=== PATIENT | female | born 1970 | race Caucasian/White ===

== ENCOUNTER 2018-08-23 04:12 | Emergency (ER) | payer BC ==
[~2018-08-23] VITALS: Ht 162.6 cm; Wt 80.0 kg
[~2018-08-23 04:12] MED LIST: CELEXA
[2018-08-23 04:14] VITALS: Ht 162.6 cm; Wt 80.0 kg
[2018-08-23] MEDS ORDERED: ONDANSETRON 4 MG INJ IV STA (06:36)
[2018-08-23] MEDS ORDERED: SOD CHLORIDE 0.9% 500 ML IV STA (06:36)
[2018-08-23] MEDS ORDERED: LIDOCAINE/MYLANTA 40 ML BTL PO STA (06:36)
[2018-08-23] MEDS ORDERED: FAMOTIDINE 20 MG INJ IV STA (06:36)
[2018-08-23] MEDS ORDERED: BELLADONNA/PHENOBARBITAL TAB PO STA (06:36)
[2018-08-23] MEDS ORDERED: DICYCLOMINE 20 MG INJ IM ONE (07:30)
--- NOTE | 2018-08-23 07:48 | ERD ---
ER Documentation Chief Complaint Chief Complaint epigastric pain since 1999. HPI This is a 47-year-old female with a past medical history of gastric ulcers and 2 previous C-sections who is presenting with exacerbated epigastric pain. The patient has had issues with ulcers and epigastric pain since 1999, but it has waxed and waned over time. The patient's symptoms have seemed to be under control mostly over the last few years, but has been getting worse over the last several days. The patient reports going out for a meal recently and she thought that the chicken was raw. The patient developed nausea with several episodes of nonbilious nonbloody vomiting and diarrhea the day after. The patient is felt bloated and crampy since then. She is tried a few [id number] and homeopathic medications at home without any significant relief. Yesterday, the patient reports having had a decreased appetite, but she did eat fried chicken and vegetables last night after which her symptoms were exacerbated. The patient endorses moderate cramping gnawing burning epigastric pain radiating into her throat, waxing and waning in nature. She believes that it is her stomach ulcer. She did have an endoscopy several years ago, but she does not know what the results are from it. She is not on any medications for her stomach. She denies any changes to bowel movements at this time. The diarrhea resolved after 1 day. She does not endorse constipation. She had a normal formed brown bowel movement yesterday. She denies dysuria or hematuria or urgency or frequency. She denies any vaginal bleeding or discharge or burning or pain. The patient denies feeling sick recently. The patient denies fever or chills. The patient has had no headache or vision changes. The patient does not endorse neck or back pain. The patient denies lightheadedness or dizziness. The patient has had no chest pain or trouble breathing. The patient has had no focal deficits. The patient has had no weakness or numbness or tingling to the face or extremities. ROS All systems reviewed and are negative except as per history of present illness. Medications Home Meds Active Scripts Ondansetron Hcl* (Zofran*) 8 Mg Tablet, 8 MG PO Q6H PRN for NAUSEA AND OR VOMITING, #20 TAB Prov:SALOME CHAKRABORTY MD 08/23/18 Omeprazole* (Omeprazole*) 40 Mg Capsule.dr, 40 MG PO DAILY, #15 CAP Prov:SALOME CHAKRABORTY MD 08/23/18 Famotidine* (Pepcid*) 20 Mg Tablet, 20 MG PO BID for 14 Days, TAB Prov:SALOME CHAKRABORTY MD 08/23/18 Reported Medications Celexa 10/31/09 Allergies Allergies: Coded Allergies: No Known Drug Allergies (Verified Allergy, Mild, 10/31/09) PMhx/Soc History of Surgery: Yes (CSECTIONS) Anesthesia Reaction: No Hx Neurological Disorder: No Hx Respiratory Disorders: No Hx Cardiac Disorders: No Hx Psychiatric Problems: No Hx Miscellaneous Medical Probl: Yes (GASTRIC ULCER) Hx Alcohol Use: Yes (OCASSIONALLY) Hx Substance Use: No Hx Tobacco Use: Yes Smoking Status: Current some day smoker FmHx Family History: No diabetes Physical Exam Vitals Vital Signs Date Temp Pulse Resp B/P (MAP) Pulse Ox O2 O2 Flow FiO2 Time Delivery Rate 08/23/18 98.3 60 18 108/65 97 Room Air 09:40 (79) 08/23/18 98.2 63 18 115/69 98 Room Air 08:00 (84) 08/23/18 60 14 111/81 98 Room Air 05:33 (91) 08/23/18 98.0 75 18 115/76 98 04:14 (89) Physical Exam Const: No acute distress Head: Atraumatic Eyes: Normal Conjunctiva ENT: Normal External Ears, Nose and Mouth. Neck: Full range of motion. No meningismus. Resp: Clear to auscultation bilaterally Cardio: Regular rate and rhythm, no murmurs Abd: Soft, non distended. Mild epigastric tenderness. No guarding or rebound. Normal bowel sounds Skin: No petechiae or rashes Back: No midline or flank tenderness Ext: No cyanosis, or edema Neur: Awake and alert Psych: Normal Mood and Affect Result Diagram: 08/23/1848 08/23/1848 Results 24 hrs Laboratory Tests Test 08/23/18 05:32 08/23/18 05:37 08/23/18 05:48 Urine Color YELLOW Urine Clarity CLEAR Urine pH 6.0 Urine Specific [place] 1.020 Urine Ketones NEGATIVE mg/dL Urine Nitrite NEGATIVE mg/dL Urine Bilirubin NEGATIVE mg/dL Urine Urobilinogen NEGATIVE mg/dL Urine Leukocyte Esterase NEGATIVE Kam/ul Urine Microscopic RBC 5 /HPF Urine Microscopic WBC 1 /HPF Urine Bacteria FEW /HPF Urine Mucus FEW /HPF Urine Hemoglobin 1+ mg/dL Urine Glucose NEGATIVE mg/dL Urine Total Protein NEGATIVE mg/dl Urine Test NEGATIVE Troponin I < 0.012 ng/ml White Blood Count 7.7 10^3/ul Red Blood Count 4.70 10^6/ul Hemoglobin 13.6 g/dl Hematocrit 42.4 % Mean Corpuscular Volume 90.2 fl Mean Corpuscular Hemoglobin 28.9 pg Mean Corpuscular 32.1 g/dl Hemoglobin Concent Red Cell Distribution Width 13.5 % Platelet Count 271 10^3/UL Mean Platelet Volume 9.1 fl Immature Granulocytes % 0.400 % Neutrophils % 66.5 % Lymphocytes % 24.1 % Monocytes % 5.1 % Eosinophils % 3.4 % Basophils % 0.5 % Nucleated Red Blood Cells % 0.0 /100WBC Immature Granulocytes # 0.030 10^3/ul Neutrophils # 5.1 10^3/ul Lymphocytes # 1.9 10^3/ul Monocytes # 0.4 10^3/ul Eosinophils # 0.3 10^3/ul Basophils # 0.0 10^3/ul Nucleated Red Blood Cells # 0.0 10^3/ul Sodium Level 144 mmol/L Potassium Level 4.6 mmol/L Chloride Level 102 mmol/L Carbon Dioxide Level 35 mmol/L Anion Gap 7 Blood Urea Nitrogen 19 mg/dl Creatinine 0.74 mg/dl Est Glomerular Filtrat > 60 mL/min Rate mL/min Glucose Level 136 mg/dl Calcium Level 10.3 mg/dl Total Bilirubin 0.4 mg/dl Direct Bilirubin 0.00 mg/dl Indirect Bilirubin 0.4 mg/dl Aspartate Amino 25 IU/L Transf (AST/SGOT) Alanine 63 IU/L Aminotransferase (ALT/SGPT) Alkaline Phosphatase 63 IU/L Total Protein 8.1 g/dl Albumin 4.5 g/dl Globulin 3.60 g/dl Albumin/Globulin Ratio 1.25 Lipase 106 U/L Current Medications Medications Dose Sig/Tad Start Time Status Last (Trade) Ordered Route PRN Stop Time Admin Dose Reason Admin Sodium 500 ml @ Q1H STAT 08/23/18 DC 08/23/18 Chloride 500 mls/hr IV 06:36 06:51 08/23/18 07:35 Ondansetron 4 mg ONCE STAT 08/23/18 DC 08/23/18 HCl (Zofran IV 06:36 06:51 Inj) 08/23/18 06:38 Famotidine 20 mg ONCE STAT 08/23/18 DC 08/23/18 (Pepcid Iv) IV 06:36 06:51 08/23/18 06:38 40 ml ONCE STAT 08/23/18 DC 08/23/18 Miscellaneous PO 06:36 06:51 Medication 08/23/18 06:38 (Gi Cocktail (2)) Belladonna/ 2 tab ONCE STAT 08/23/18 DC 08/23/18 Phenobarbital PO 06:36 06:51 () 08/23/18 06:38 Dicyclomine 10 mg ONCE ONCE 08/23/18 DC 08/23/18 HCl IM 07:30 07:35 (Bentyl) 08/23/18 07:31 Procedures/MDM MDM The patient's presentation warrants further investigation. Previous medical rach rds, if available, were reviewed. LABS The patient's laboratory testing was obtained and reviewed. No emergent treatment was required unless described below. CBC: No E/o systemic infection or severe anemia or thrombocytopenia Chemistry: No E/o severe acidosis or alkalosis or renal failure or liver disease or diabetic ketoacidosis Lipase: No E/o pancreatitis Troponin: Negative Urine: No E/o acute infection or hematuria EKG EKG read by me: Rate/Rhythm: Sinus bradycardia at 52 bpm Intervals: Normal Beeler: Normal Impression: No evidence of acute ischemia. Sinus bradycardia. IMAGING Imaging and Radiology interpretation reviewed. CXR 1V Interpreted by me Soft Tissue: No acute abnormalities Bones: No acute abnormalities Mediastinum/Cardiac Silhouette: Unremarkable. No widened mediastinum. Lungs: No acute abnormalities. Normal pulmonary vasculature. No pneumothorax. No pulmonary edema. Clear costal diaphragmatic angles. No pleural effusions. No opacity or consolidations concerning for pneumonia. Other: No pneumoperitoneum Ultrasound right upper quadrant FINDINGS: The liver demonstrates normal echogenicity. The liver is normal in size and no focal solid lesions are seen. The liver measures 13.8 cm in length. The portal vein is patent with normal direction of flow. No intrahepatic biliary dilatation is seen. No gallstones are identified within the gallbladder. There is no pericholecystic fluid or gallbladder wall thickening. The common bile duct measures 6 mm in maximal dimension. The visualized portions of the pancreas are unremarkable. The tail of the pancreas is not seen. No free fluid is identified. The right kidney is normal in size, and demonstrate normal echogenicity and cortical thickness. The right kidney measures 10.4 cm in long dimension. There is no evidence of hydronephrosis. There are no kidney stones. IMPRESSION: Unremarkable right upper quadrant abdominal ultrasound. Electronically viewed and signed by Kong Tesfaye MD on 08/23/2018 08:31 TREATMENT/DISPOSITION The patient presents with epigastric abdominal pain. I do suspect gastritis versus PUD versus GERD as the etiology of her symptoms. She has a known diagnosis of ulcers, which could have been exacerbated. The patient also has symptoms that are potentially concerning for gastroenteritis. Both of these can be treated symptomatically. There is no evidence of pneumoperitoneum. I do not suspect viscus perforation. The patient does not have any evidence of p eritonitis. The patient does not have clinical symptoms concerning for mesenteric ischemia or ischemic colitis. Given the location of the patient's pain, I did opt to perform an ultrasound of the gallbladder, which was unremarkable. The patient does not have right upper quadrant tenderness, and I have low suspicion for gallstones, cholecystitis or biliary colic. The patient does not have left upper quadrant tenderness. I have low suspicion for pancreatitis. The patient does not have any right lower quadrant tenderness, or periumbilical tenderness. I have low suspicion for appendicitis. The patient does not have suprapubic tenderness. I have decreased suspicion for cystitis. The patient does not have any left lower quadrant tenderness, and I have low suspicion for diverticulosis or diverticulitis. The patient does not have any flank tenderness. The patient does not have gross hematuria. I have decreased suspicion for nephrolithiasis or renal colic. The patient does not have any palpable pulsatile mass or severe abdominal pain radiating to the back. I have low suspicion for aortic aneurysm, dissection or rupture. The patient was treated with IV fluids, Zofran, Pepcid, a GI cocktail and Bentyl with some improvement of her symptoms. I do feel that the patient requires wilian roenterology evaluation, but this may be completed in an outpatient setting. DISCHARGE Upon reevaluation of the patient, symptoms have improved. No emergent diagnoses were identified. At this time, I feel that the patient stable for discharge. The patient was instructed to follow-up with a primary care physician in 1-3 days. The patient will be given strict precautions with which to return to the emergency department. Prescriptions: Pepcid, omeprazole, Zofran Disclaimer: Inadvertent spelling and grammatical errors are likely due to EHR/dictation software use and do not reflect on the overall quality of patient care. Note that the electronic time recorded on this note does not necessarily reflect the actual time of the patient encounter. Departure Diagnosis: Primary Impression: Epigastric pain Additional Impression: Nausea & vomiting Vomiting type: unspecified Vomiting Intractability: non-intractable Qualified Codes: R11.2 - Nausea with vomiting, unspecified Condition: Stable Patient Instructions: Epigastric Pain (Uncertain Cause), Nausea and Vomiting- Adult, Peptic Ulcer Disease (All Causes) Additional Instructions: Thank you for for coming to [facility] for your care today. Please ask your nurse or provider if you have questions about your care today and do not leave until all your questions have been answered. Please use any medications given as directed and follow-up with your doctor (or the doctor you were referred to) in the next 1-3 days. If you do not have a primary care doctor you may follow up at the [facility] or [facility] (listed below). You may also use motrin and tylenol as needed for fever and/or pain unless instructed otherwise by your provider or nurse. Indications for more urgent follow-up have been discussed, but you may return to the Emergency Department at ANY time for any worrisome or worsening symptoms. If you have abdominal pain, please know that no test or exam you received is perfect and you should follow up within 8 hours for continued pain. If you had any imaging studies today, such as an X-Ray or CT Scan, these studies will be reviewed later by a radiologist. You will be called if there are important findings that were not identified today, so make sure the contact information you provided at registration is correct. If you received any narcotic pain control medicine today, such as Vicodin, Morphine or Dilaudid, your coordination and judgment may be affected for a numb er of hours. Please do not drive or operate heavy machinery, and you may want someone to assist you at home. If you were given a prescription for narcotic medication, be aware that it is very addictive- use sparingly and only if necessary. PLEASE SEEK FURTHER EVALUATION AND MANAGEMENT AT YOUR DOCTORS OFFICE WITHIN THE NEXT 1-3 DAYS. IT IS YOUR RESPONSIBILITY TO MAKE AN APPOINTMENT FOR FOLOW-UP CA RE. IF YOU HAVE A PRIMARY DOCTOR, PLEASE CALL THEIR OFFICE TO SCHEDULE AN APPOINTMENT FOR FOLLOW UP. IF YOU DO NOT HAVE A PRIMARY DOCTOR YOU CAN CALL OUR PHYSICIAN REFERRAL HOTLINE AT IF YOU CAN NOT AFFORD TO SEE A PHYSICIAN YOU CAN CHOSE FROM THE FOLLOWING [facility] CL[facility]ICS: [facility] [address] [facility] [address] [facility]. [facility] [address] [facility] [address] [facility] [address] [facility]. [facility]. [address] SALOME EDMONDS MD Aug 23, 2018 07:37
[2018-08-23] MEDS ORDERED: FAMO-96 PO (07:50)
[2018-08-23] MEDS ORDERED: ONDA8TAB9 PO (07:50)
[2018-08-23] MEDS ORDERED: OMEP40CA6 PO (07:50)
[2018-08-23 09:40] VITALS: BP 108/65; PULSE 60; RESP 18
== END 2018-08-23 10:30 | disposition home or self-care (01) ==
LOC: E/R 04:12
DX: R10.13 Epigastric pain (principal); R11.2 Nausea with vomiting, unspecified; F17.210 Nicotine dependence, cigarettes, uncomplicated
CPT/HCPCS: 36415; 71045; 76705; 80053; 81001; 83690; 84484; 84703; 85025; 93005; 96361; 96372; 96374; 96375; 99285; J0500; J2405; J7040